=== PATIENT | male | born 1985 | race Caucasian/White ===

== ENCOUNTER 2019-04-22 14:36 | Emergency (ER) | payer SELFPAY ==
--- NOTE | ~2019-04-22 | XR_ITS ---
XR chest 2V DATE: 04/22/2019 16:11 INDICATION: Cough, fever, chills, aches, nausea for 2 weeks TECHNIQUE: PA and lateral views COMPARISON: None FINDINGS: Normal heart size. No hilar or mediastinal enlargement. No pulmonary infiltrate or consolid ation, pleural effusion or pulmonary vascular congestion or pneumothorax. IMPRESSION: Negative Reviewed, dictated and finalized at location A. IMPRESSION: Negative
[2019-04-22 14:48] VITALS: BP 127/74; PULSE 91; RESP 20; TEMP 37.6; O2SAT 100
[2019-04-22 15:19] VITALS: O2SAT 98
[2019-04-22] MEDS: SODIUM CHLORIDE 0.9% IV 1,000 ML 999 ML IV CONT (15:48)
[2019-04-22 15:55] LABS: Basophils Percent Auto 0.2 % (0.2-1.2); Hematocrit 45.1 % (42.0-52.0); Hemoglobin 15.7 g/dL (14.0-18.0); Immature Granulocyte Absolute 0.01 K/mm3 (0.00-0.031); Immature Granulocyte Percent A 0.2 % (0-0.5); Lymphocytes Absolute Auto 2.28 K/mm3 (0.9-3.2); Lymphocytes Percent Auto 39.4 % (18.3-44.2); Mean Corpuscular HGB Conc 34.8 g/dl (32-36); Mean Corpuscular Hemoglobin 31.9 pg (26-34); Mean Corpuscular Volume 91.7 fl (80-100); Mean Platelet Volume 9.9 fl (7.4-10.4); Monocytes Absolute Auto 0.6 K/mm3 (0.1-0.6); Monocytes Percent Auto 9.7 % (2.6-8.5); Neutrophils Absolute Auto 2.9 K/mm3 (1.3-6.7); Neutrophils Percent Auto 50.5 % (45.5-73.1); Platelet Count Result 205 k/mm3 (150-375); Red Blood Count 4.92 M/mm3 (4.6-6.20); Red Cell Distribution Width 11.7 % (11.5-14.5); White Blood Count 5.8 K/mm3 (4.5-10.0)
[2019-04-22 16:00] LABS: Add Urine Microscopic? YES; Appearance Urine Clear (Clear); Bacteria Urine Trace /hpf; Bilirubin Urine Negative (Negative); Blood Urine Negative (Negative); Color Urine Yellow (Yellow); Glucose Urine UA Negative (Negative); Ketones Urine 1+ mg/dL (Negative); Leukocyte Esterase Ur Negative LEU/UL (Negative); Nitrate Urine Negative (Negative); Protein Urine 1+ mg/dL (Negative); RBC Urine 0-2 /hpf (0-2); Specific Grav Ur 1.024 (1.001-1.035); WBC Urine 0-3 /hpf
[2019-04-22 16:07] LABS: Lactic Acid Reflex 1.1 mmol/L (0.7-2.1)
[2019-04-22 16:21] LABS: Alanine Aminotransferase 19 U/L (4-50); Albumin Level 4.4 g/dL (3.5-5.1); Alkaline Phosphatase 69 U/L (38-126); Aspartate Amino Transferase 36 U/L (17-59); Bilirubin,Total 0.7 mg/dL (0.2-1.3); Blood Urea Nitrogen 12 mg/dL (9-20); Calcium 8.8 mg/dL (8.4-10.2); Carbon Dioxide 24 mmol/L (22-30); Chloride 105 mmol/L (98-107); Estimated CRCL calculation 160 ml/min; Estimated Glomerular Filt Rate > 60; Glucose 100 mg/dL (75-110); Lipase 71 U/L (23-300); Potassium 3.5 mmol/L (3.4-5.0); Sodium 136 mmol/L (137-145)
[2019-04-22 16:25] VITALS: TEMP 36.9
--- NOTE | 2019-04-22 16:47 | ED.URI ---
HPI - URI/Sore Throat General Chief Complaint: Upper Respiratory Infection Stated Complaint: FEVER,CHILLS, BODY ACHES Time Seen by Provider: 04/22/19 15:09 Source: patient Mode of arrival: ambulatory Limitations: no limitations History of Present Illness HPI Narrative: This is a 33 year old male that presents to the ER for fever, cough, myalgias and sore throat for 2 weeks. Also reports some nausea and an episode of diarrhea yesterday. Reports he he thinks he had some blood in his diarrhea yesterday. Denies chest pain, shortness of breath, abdominal pain, vomiting, dysuria or hematuria. Related Data Home Medications Medication Instructions Recorded Confirmed prednisone 04/22/19 promethazine-DM ml 04/22/19 Allergies Allergy/AdvReac Type Severity Reaction Status Date / Time No Known Allergies Allergy Verified 04/22/19 15:27 Review of Systems Review of Systems: Narrative: CONSTITUTIONAL: Reports fever, chills ENT: Reports rhinorrhea, congestion, sore throat. Denies otalgia. CARDIOVASCULAR: Denies chest pain RESPIRATORY: Reports cough. Denies dyspnea. GASTROINTESTINAL: Reports nausea and diarrhea. Denies abdominal pain, vomiting GENITOURINARY: Denies dysuria or hematuria. All systems reviewed & are unremarkable except as noted in HPI and below PMFSH Social History Social History (Updated 04/22/19 @ 16:49 by Kathy Aviles PA-C) Smoking status: Former smoker Substance use: never Exam Narrative: Exam Narrative: GENERAL: Well-appearing, well-nourished, and in no acute distress. HEAD: Normocephalic, atraumatic. EYES: EOMI. ENT: Nares clear, no rhinorrhea or epistaxis. Mucous membranes moist. Oropharynx without tonsillar hypertrophy exudate or other lesions. Bilateral TMs pearly galindo non-bulging NECK: Supple. No adenopathy or masses. CHEST: Clear to auscultation. No respiratory distress. No wheezes rales or rhonchi HEART: Regular rate and rhythm. No murmur heard. Normal peripheral pulses. ABDOMEN: Soft, nontender, nondistended, normal active bowel sounds. EXTREMITIES: Normal range of motion. No edema. SKIN: Warm, dry, no rash. NEURO: No focal deficits. Alert and oriented x3. PSYCH: Normal mood and affect RECTAL: Hemoccult negative Course Vital Signs Vital signs: Vital Signs Temperature 99.7 F H 04/22/19 14:48 Pulse Rate 91 04/22/19 14:48 Respiratory Rate 20 04/22/19 14:48 Blood Pressure 127/74 04/22/19 14:48 Pulse Oximetry 100 04/22/19 14:48 Temperature 98.4 F 04/22/19 16:25 Pulse Rate 91 04/22/19 14:48 Respiratory Rate 20 04/22/19 14:48 Blood Pressure 127/74 04/22/19 14:48 Pulse Oximetry 98 04/22/19 15:19 MDM - URI/Sore Throat MDM Narrative Medical decision making narrative: Patient presents the emergency department for cold symptoms x2 weeks. Patient is afebrile and nontoxic-appearing. CBC and metabolic panel are without acute changes. Lactic acid is not elevated. UA with evidence of dehydration, no evidence of infection. Influenza screen is negative. Crisp test is negative. Chest x-ray is without acute changes. Patient and family were updated on case findings. He was instructed on continued symptomatic care for viral infection. He is to follow-up with primary care doctor. He was given warnings to return to ER Lab Data Attestation: I reviewed the patient's lab results. Result diagrams: 04/22/19 15:46 04/22/19 15:46 Labs: Lab Results 04/22/19 04/22/19 04/22/19 Range/Units 15:46 15:46 15:46 WBC 5.8 (4.5-10.0) K/mm3 RBC 4.92 (4.6-6.20) M/mm3 Hgb 15.7 (14.0-18.0) g/dL Hct 45.1 (42.0-52.0) % MCV 91.7 (80-100) fl MCH 31.9 (26-34) pg MCHC 34.8 (32-36) g/dl RDW 11.7 (11.5-14.5) % Plt Count 205 (150-375) k/mm3 MPV 9.9 (7.4-10.4) fl Immature Gran % (Auto) 0.2 (0-0.5) % Neut % (Auto) 50.5 (45.5-73.1) % Lymph % (Auto) 39.4 (18.3-44.2) % Crisp % (Auto) 9.7 H
[2019-04-22 18:29] LABS: Monoscreen Negative (Negative); Negative Monotest Control Negative (Negative); Positive Monotest Control Positive (Positive)
[2019-04-22 18:40] VITALS: BP 125/68; PULSE 80; RESP 16; O2SAT 99
== END 2019-04-22 18:50 | disposition home or self-care (01) ==
PROVIDERS: Physician Assistant; Emergency Provider Emergency Medicine
DX: B34.9 Viral infection, unspecified (principal); Z87.891 Personal history of nicotine dependence
CPT/HCPCS: 36415; 71046; 80053; 81001; 83605; 83690; 85025; 86308; 87804; 96361; 96374; 99284; J0131; J7030